=== PATIENT | male | born 1985 | race Caucasian/White ===

== ENCOUNTER 2023-05-20 07:16 | Emergency (ER) | payer BC, SELFPAY ==
[2023-05-20] VITALS (14 sets, daily range): BP systolic 143–163; BP diastolic 95–106; PULSE 88–121; RESP 13–26; TEMP 36.6–36.8; O2SAT 96–100
--- NOTE | ~2023-05-20 | XR_ITS ---
Clinical Indication: Chest pain PA and lateral views of the chest: Comparison: None Findings: The lungs are clear, without evidence of focal consolidation or pleural effusion. Cardiome diastinal silhouette is within normal limits. Bones and soft tissues are unremarkable. Impression: Normal chest. Reviewed, dictated and finalized at location . COLORIST DYER Impression: Normal chest.
--- NOTE | ~2023-05-20 | CT_ITS ---
EXAMINATION: CT chest abdomen w con DATE: 05/20/2023 08:18 INDICATION: Chest pain and extremity into the left shoulder as well as epigastric abdominal pain. TECHNIQUE: Computed tomography (CT) of the chest and abdomen was performed with 100 mL Omnipaque-350 intravenous contrast. Automated exposure control and iterative reconstruction technique were employed . The dose-length product was 955.79 mGy-cm. COMPARISON: None FINDINGS: CHEST CT: Lungs are clear with no pneumonia, pulmonary edema, pleural effusion or pneumothorax. Heart size is n ormal. Small amount of atherosclerotic coronary artery calcification. No pericardial effusion. Thorac ic aorta is normal in caliber with no dissection. No pathologically enlarged thoracic lymphadenopathy . Mild thoracic spondylosis. ABDOMEN CT: Diffuse hepatic steatosis with focal sparing along the gallbladder fossa. Gallbladder, spleen, pancre as, bilateral adrenal glands and kidneys are normal. A few diverticula along the descending colon wit hout adjacent comparison to suggest diverticular colitis. Small bowel and appendix are normal. No pat hologically enlarged abdominal lymphadenopathy. Mild lumbar spondylosis. IMPRESSION: 1. No acute cardiopulmonary disease or acute intra-abdominal process. 2. Diffuse hepatic steatosis. Reviewed, dictated and finalized at location L. INSPECTOR
--- NOTE | 2023-05-20 07:19 | ECG_ITS ---
Measurements Intervals Freedom Rate: 109 P: 43 WV: 155 QRS: -10 QRSD: 109 T: 27 QT: 331 QTc: 447 Interpretive Statements SINUS TACHYCARDIA NONSPECIFIC T-WAVE ABNORMALITY NO PREVIOUS ECG AVAILABLE FOR COMPARISON Electronically Signed On 05-20-2023 15:42:20 MATH INTERVENTIONIST by Fausto Benoit M.D.
[2023-05-20 07:40] LABS: Basophils Percent Auto 0.7 % (0.2-1.2); Eosinophils Absolute Auto 0.1 K/mm3 (0-0.3); Eosinophils Percent Auto 1.2 % (0-4.4); Hematocrit 44.1 % (42.0-52.0); Immature Granulocyte Absolute 0.02 K/mm3 (0.00-0.031); Immature Granulocyte Percent A 0.3 % (0-0.5); Lymphocytes Absolute Auto 1.55 K/mm3 (0.9-3.2); Lymphocytes Percent Auto 26.3 % (18.3-44.2); Mean Platelet Volume 9.6 fl (7.4-10.4); Monocytes Absolute Auto 0.4 K/mm3 (0.1-0.6); Monocytes Percent Auto 7.1 % (2.6-8.5); Neutrophils Absolute Auto 3.8 K/mm3 (1.3-6.7); Neutrophils Percent Auto 64.4 % (45.5-73.1); Platelet Count Result 255 k/mm3 (150-375); Red Blood Count 4.41 M/mm3 (4.6-6.20); Red Cell Distribution Width 11.6 % (11.5-14.5); White Blood Count 5.9 K/mm3 (4.5-10.0)
[2023-05-20] MEDS: SODIUM CHLORIDE 0.9% IV 1,000 ML 999 ML IV CONT (07:40)
[2023-05-20] MEDS: FAMOTIDINE 20 MG/2 ML VIAL IV PUSH (07:41)
[2023-05-20] MEDS: BELLADONNA ALK/PHENOB ELIX 10 ML, MAG HYDROX/ALUMINUM HYD/SIMETH 30 ML, LIDOCAINE HCL 2... PO (07:41)
[2023-05-20 07:51] LABS: Alanine Aminotransferase 97 U/L (6-50); Albumin Level 4.8 g/dL (3.5-5.1); Alkaline Phosphatase 70 U/L (38-126); Anion Gap 9 mmol/L (8-16); Aspartate Amino Transferase 61 U/L (17-59); Bilirubin,Total 1.1 mg/dL (0.2-1.3); Blood Urea Nitrogen 18 mg/dL (9-20); Calcium 9.8 mg/dL (8.4-10.2); Carbon Dioxide 26 mmol/L (22-30); Chloride 105 mmol/L (98-107); Estimated CRCL calculation 99 ml/min; Estimated Glomerular Filt Rate > 60; Glucose 106 mg/dL (65-110); Lipase 120 U/L (23-300); Potassium 3.9 mmol/L (3.4-5.0); Sodium 140 mmol/L (137-145)
[2023-05-20 08:02] LABS: Troponin I < 0.012 ng/mL (0.000-0.034)
[2023-05-20 08:04] LABS: Prothrombin Time 13.8 Seconds (11.1-14.7)
--- NOTE | 2023-05-20 08:10 | ED.CHESTPAIN ---
HPI - Chest Pain General Chief Complaint: Chest Pain Stated Complaint: Chest Pain X Days Time Seen by Provider: 05/20/23 07:23 History of Present Illness HPI narrative: This is a 38-year-old male, with history of hypertension, presents to the emergency department complaining of substernal chest pain for the past year, worst in last few days. The patient describes the pain as sharp, 8/10 at maximum, 3/10 at minimum. He states aggravated by eating as well as physical exertion. It is constant though waxes wanes. He has no other complaints at this time. Related Data Home Medications Medication Instructions Recorded Confirmed lisinopril 40 mg tablet 40 mg PO DAILY 05/20/23 05/20/23 Allergies Allergy/AdvReac Type Severity Reaction Status Date / Time Penicillins Allergy Unknown Verified 05/20/23 07:23 Review of Systems Review of Systems: CONSTITUTIONAL: Denies fever, chills, or sweats. CARDIOVASCULAR: Substernal chest pain Denies palpitations, or edema. RESPIRATORY: Denies cough or dyspnea. GASTROINTESTINAL: Denies abdominal pain, nausea, vomiting, or diarrhea. GENITOURINARY: Denies dysuria or hematuria. SKIN: Denies rash or itching. MUSCULOSKELETAL: Denies back pain, joint pain, or myalgia. NEUROLOGIC: Denies headache, numbness, dizziness, or weakness. PSYCHIATRIC: Denies anxiety or depression. PMFSH Past Medical History Medical History Hypertension Surgical History Surgical History No significant past surgical history Social History Social History Smoking status: Current some day smoker Tobacco type: e-cigarettes/vaping Alcohol intake: current Substance use: current Substance use type: marijuana Exam Narrative: GENERAL: Well-developed, well-nourished, and in no acute distress. HEAD: Normocephalic, atraumatic. EYES: PERRLA and EOMI. CHEST: Clear to auscultation. No respiratory distress. No wheezes rales or rhonchi HEART: Tachycardic with regular rhythm. No murmur heard. Normal peripheral pulses. ABDOMEN: Soft, nontender, nondistended, normal active bowel sounds. EXTREMITIES: Normal range of motion. No edema. SKIN: Warm, dry, no rash. NEURO: Alert and oriented x3. No focal deficit. Moving all 4 limbs spontaneously PSYCH: Normal mood and affect. Course Course Emergency Course: 08:14 - Initial troponin negative. His EKG not concerning for ischemia. Heart score 2. I have a low suspicion for ACS. 09:34 - Chemistries Demonstrate mild ALT/ AST elevation of 97/61 respectively.. CBC within normal limits. INR within normal limits. Chest x-ray unremarkable. CT chest and abdomen demonstrates hepatic steatosis and diverticulosis without other acute findings. On re-evaluation, the patient states his pain is significantly improved after GI cocktail. I suspect GERD. Will discharge with recommendation for increase pantoprazole dose to twice a day, avoidance of all NSAIDs, reduction of alcohol use and follow up with GI and his primary care doctor. I discussed the findings and recommendations with the patient. Discussed return and emergency precautions including signs/symptoms of ACS, acute abdomen, GI bleed and intractable vomiting. The patient voiced understanding and agreement with the plan. All questions answered to his satisfaction. Vital Signs Vital signs: Vital Signs Temperature 98.2 F 05/20/23 07:21 Pulse Rate 118 H 05/20/23 07:21 Respiratory Rate 18 05/20/23 07:21 Blood Pressure 163/105 H 05/20/23 07:21 Pulse Oximetry 98 05/20/23 07:21 Temperature 98 F 05/20/23 09:52 Pulse Rate 88 05/20/23 09:52 Respiratory Rate 16 05/20/23 09:52 Blood Pressure 143/99 H 05/20/23 09:52 Pulse Oximetry 100 05/20/23 09:52 Oxygen Delivery Room Air 05/20/23 07:23 MDM - Chest Pain MDM Narrative
== END 2023-05-20 09:54 | disposition home or self-care (01) ==
PROVIDERS: Emergency Provider Preventive Medicine Aerospace Medicine; PCP Internal Medicine
DX: R07.89 Other chest pain (principal); K21.9 Gastro-esophageal reflux disease without esophagitis; I10 Essential (primary) hypertension; F17.290 Nicotine dependence, other tobacco product, uncomplicated; R00.0 Tachycardia, unspecified; R94.31 Abnormal electrocardiogram [ECG] [EKG]; K76.0 Fatty (change of) liver, not elsewhere classified
CPT/HCPCS: 36415; 71046; 71260; 74160; 80053; 83690; 84484; 85025; 85610; 85730; 93005; 96361; 96374; 99284; A9270; J7030; Q9967